=== PATIENT | female | born 1960 | race African-American/Black ===

== ENCOUNTER 2017-02-27 15:05 | Emergency (ER) | payer OTHER ==
[~2017-02-27] VITALS: Ht 160 cm; Wt 92.7 kg
[2017-02-27 15:17] LABS: GLUCOSE,POINT OF CARE 171 MG/DL (70-110)
[2017-02-27] MEDS ORDERED: ASPI81 PO (15:25)
[2017-02-27] MEDS ORDERED: METF500T4 PO (15:25)
[2017-02-27] MEDS ORDERED: GLIP5 PO (15:25)
[2017-02-27] MEDS ORDERED: ATOR20TA86 PO (15:25)
[2017-02-27 17:50] VITALS: BP 129/73
== END 2017-02-27 18:27 | disposition home or self-care (01) ==
LOC: EMS 15:06
DX: L02.811 Cutaneous abscess of head [any part, except face] (principal); L02.01 Cutaneous abscess of face; L30.8 Other specified dermatitis; E11.9 Type 2 diabetes mellitus without complications; E78.00 Pure hypercholesterolemia, unspecified; Z79.82 Long term (current) use of aspirin
CPT/HCPCS: 82962; 99283

== ENCOUNTER 2018-04-22 23:26 | Emergency (ER) | payer OTHER ==
[~2018-04-22] VITALS: Ht 160 cm; Wt 97.7 kg
[~2018-04-22 23:26] MED LIST: ASPI81 PO; ATOR20TA86 PO; GLIP5 PO; METF500T6 PO
[2018-04-22 23:38] LABS: GLUCOSE,POINT OF CARE 204 MG/DL (70-110)
[2018-04-23] MEDS ORDERED: LIDOCAINE HCL/PF 1% 5 ML VIAL INJ ONE (01:00)
[2018-04-23] MEDS ORDERED: BACITRACIN 0.9 GM PACKET OINTMENT TP ONE (02:15)
[2018-04-23 02:26] VITALS: BP 119/84
[2018-04-23] MEDS ORDERED: PERTUSS(ACELL),DIPH,TET VAC/PF 0.5 ML VIAL IM ONE (02:30)
== END 2018-04-23 02:35 | disposition home or self-care (01) ==
LOC: EMS 23:27
DX: S01.81XA Laceration without foreign body of other part of head, initial encounter (principal); E11.9 Type 2 diabetes mellitus without complications; E78.00 Pure hypercholesterolemia, unspecified; Z79.82 Long term (current) use of aspirin; Z79.899 Other long term (current) drug therapy; W22.8XXA Striking against or struck by other objects, initial encounter; Y93.89 Activity, other specified; Y92.89 Other specified places as the place of occurrence of the external cause; Y99.8 Other external cause status
CPT/HCPCS: 12013; 82962; 90471; 90715; 99283; J3490

== ENCOUNTER 2018-04-30 12:25 | Emergency (ER) | payer OTHER ==
[~2018-04-30] VITALS: Ht 162.6 cm; Wt 90.9 kg
[2018-04-30 12:58] LABS: GLUCOSE,POINT OF CARE 176 MG/DL (70-110)
[2018-04-30 13:47] VITALS: BP 131/84
== END 2018-04-30 14:00 | disposition home or self-care (01) ==
LOC: EMS 12:27
DX: Z48.02 Encounter for removal of sutures (principal); E11.9 Type 2 diabetes mellitus without complications; E78.00 Pure hypercholesterolemia, unspecified
CPT/HCPCS: 99281; 99282

== ENCOUNTER 2021-08-26 14:32 | Inpatient (IN) | payer OTHER ==
[~2021-08-26] VITALS: Ht 172.7 cm; Wt 88.0 kg
[~2021-08-26 14:32] MED LIST changes: +ASPI-1450 PO; -ASPI81 PO; +METF-1211 PO; -METF500T6 PO
[2021-08-26] MEDS ORDERED: ACETAMINOPHEN 325 MG TABLET PO ONE (15:30)
[2021-08-26] MEDS ORDERED: SODIUM CHLORIDE 0.9% 1,000 ML IV ONE (15:30)
[2021-08-26] MEDS ORDERED: ONDANSETRON HCL 4 MG/2 ML VIAL IVP ONE (15:30)
[2021-08-26 15:41] LABS: BASOPHILS % (AUTO) 0.3 % (0.0-2.0); EOSINOPHILS % (AUTO) 0.1 % (1.0-6.0); HEMATOCRIT 43.6 % (36-46); LYMPHOCYTES # (AUTO) 0.9 K/uL (1.0-4.8); LYMPHOCYTES % (AUTO) 6.7 % (22.0-44.0); MEAN CORPUSCULAR HEMOGLOBIN 27.5 pg (26.0-34.0); MEAN CORPUSCULAR VOLUME 86 fL (80-100); MONOCYTES # (AUTO) 0.4 K/uL (0.1-1.0); MONOCYTES % (AUTO) 2.9 % (2.0-9.0); NEUTROPHILS # (AUTO) 12.2 K/uL (1.8-7.7); PLATELET COUNT (AUTO) 299 K/uL (150-450); RED BLOOD CELL COUNT(AUTO) 5.07 MIL/uL (4.00-5.20); RED CELL DISTRIBUTION WIDTH 14.5 % (11.5-14.5)
[2021-08-26 16:28] LABS: COVID AG,FIA SOURCE NASOPHARYNGEAL
[2021-08-26 16:31] LABS: ALANINE AMINOTRANSFERASE 28 U/L (12-78); ALBUMIN 2.3 g/dL (3.4-5.0); ALKALINE PHOSPHATASE 116 U/L (46-116); ANION GAP 12 mmol/L (8-16); ASPARTATE AMINOTRANSFERASE 34 U/L (15-37); BILIRUBIN,TOTAL 0.6 mg/dL (0.1-1.0); C-REACTIVE PROTEIN QUANT 24.22 mg/dL (0.00-0.30); CALCIUM, TOTAL 9.1 mg/dL (8.8-10.5); CARBON DIOXIDE 25 mmol/L (22-29); CHLORIDE 94 mmol/L (98-107); CREATININE 1.71 mg/dL (0.60-1.30); FERRITIN 1677 ng/mL (8-252); GLOMERULAR FILTR. RATE CALC 37 mL/min (>60); LACTATE DEHYDROGENASE 388 U/L (81-234); LIPASE 214 U/L (73-393); POTASSIUM 4.3 mmol/L (3.5-5.1); SODIUM SERUM 131 mmol/L (136-145); THYROID STIMULATING HORMONE 0.68 uIU/mL (0.36-3.74); TOTAL PROTEIN, SERUM 8.3 g/dL (6.4-8.2); UREA NITROGEN, BLOOD 51 mg/dL (7-18)
[2021-08-26 16:34] LABS: GLUCOSE,RANDOM 424 mg/dL (70-110)
[2021-08-26] MEDS ORDERED: ALBUTEROL SULFATE HFA 90 MCG/PUFF 8 GM INHALER IH PRN (16:45)
[2021-08-26] MEDS ORDERED: REMDESIVIR 200 MG in SODIUM CHLORIDE 0.9% 250 ML IV ONE (16:45)
[2021-08-26] MEDS ORDERED: BENZONATATE 100 MG CAPSULE PO PRN (16:45)
[2021-08-26] MEDS ORDERED: DEXAMETHASONE SOD PHOS 4 MG/ML VIAL IVP ONE (16:45)
[2021-08-26 16:55] LABS: LACTIC ACID 2.2 mmol/L (0.4-2.0)
[2021-08-26] MEDS ORDERED: ACETAMINOPHEN 325 MG TABLET PO PRN ×2 (17:00)
[2021-08-26] MEDS ORDERED: OxyCODONE HCL/ACETAMINOPHEN 5-325 MG TABLET PO PRN (17:00)
[2021-08-26] MEDS ORDERED: DEXTROSE 50%-WATER 25 GM/50 ML SYRINGE IVP PRN (17:00)
[2021-08-26] MEDS ORDERED: 0.9% SODIUM CHLORIDE 10 ML SYRINGE IVP PRN (17:00)
[2021-08-26] MEDS ORDERED: ONDANSETRON HCL 4 MG/2 ML VIAL IVP PRN ×2 (17:00)
[2021-08-26 17:15] LABS: INFLUENZA TYPE A NEGATIVE FOR TYPE A (NEGATIVE); INFLUENZA TYPE B NEGATIVE FOR TYPE B (NEGATIVE)
[2021-08-26] MEDS: SODIUM CHLORIDE 0.9% 1,000 ML IV SCH (17:37)
[2021-08-26] MEDS: INSULIN LISPRO 100 UNITS/ML SQ PRN ×2 (18:17→22:04)
[2021-08-26 18:26] LABS: GLUCOMETER DEV NAME(LOC) ERT.5; GLUCOSE,POINT OF CARE 421 MG/DL (70-110)
[2021-08-26] MEDS: DOCUSATE SODIUM 100 MG CAPSULE PO SCH (21:00)
[2021-08-26] MEDS: INSULIN GLARGINE,HUM.REC.ANLOG 100 UNITS/ML SQ SCH (22:03)
[2021-08-26 23:52] VITALS: BP 104/66
[2021-08-27] MEDS: HEPARIN SODIUM,PORCINE 5,000 UNITS/ML VIAL SQ SCH ×4 (00:14→22:54)
[2021-08-27] MEDS: SODIUM CHLORIDE 0.9% 1,000 ML IV SCH ×3 (00:14→21:07)
[2021-08-27] MEDS ORDERED: INFLUENZA VIRUS VACCINE QVS 2021-22 (6MO+)/PF 60 MCG/0.5 ML SYRINGE IM. ONE (01:45)
[2021-08-27 02:44] VITALS: BP 126/64
[2021-08-27 03:01] LABS: GLUCOMETER DEV NAME(LOC) 5S.2B; GLUCOSE,POINT OF CARE 305 MG/DL (70-110)
[2021-08-27 05:24] VITALS: BP 102/57
[2021-08-27] MEDS: DEXAMETHASONE SOD PHOS 4 MG/ML VIAL IVP SCH (08:04)
[2021-08-27] MEDS: FAMOTIDINE 20 MG TABLET PO SCH (08:04)
[2021-08-27] MEDS: DOCUSATE SODIUM 100 MG CAPSULE PO SCH ×2 (08:04→21:00)
[2021-08-27 08:05] VITALS: BP 103/56
[2021-08-27] MEDS: INSULIN GLARGINE,HUM.REC.ANLOG 100 UNITS/ML SQ SCH ×2 (08:09→21:06)
[2021-08-27] MEDS: INSULIN LISPRO 100 UNITS/ML SQ PRN ×3 (11:11→21:07)
[2021-08-27 11:16] LABS: BASOPHILS % (AUTO) 0.1 % (0.0-2.0); EOSINOPHILS % (AUTO) 0.2 % (1.0-6.0); HEMATOCRIT 38.7 % (36-46); HEMOGLOBIN 12.5 g/dL (12.0-16.0); LYMPHOCYTES # (AUTO) 0.6 K/uL (1.0-4.8); MEAN CORPUSCULAR HEMOGLOBIN 27.7 pg (26.0-34.0); MEAN CORPUSCULAR HGB CONC 32.5 G/dL (31.0-37.0); MEAN CORPUSCULAR VOLUME 85 fL (80-100); MONOCYTES # (AUTO) 0.3 K/uL (0.1-1.0); NEUTROPHILS # (AUTO) 10.5 K/uL (1.8-7.7); PLATELET COUNT (AUTO) 296 K/uL (150-450); RED BLOOD CELL COUNT(AUTO) 4.53 MIL/uL (4.00-5.20); RED CELL DISTRIBUTION WIDTH 14.3 % (11.5-14.5)
[2021-08-27 11:21] LABS: NEUTROPHILS % (AUTO) 91.7 % (40.0-70.0)
[2021-08-27 11:23] LABS: GLUCOMETER DEV NAME(LOC) 5S.1; GLUCOSE,POINT OF CARE 209 MG/DL (70-110)
[2021-08-27 11:23] LABS: GLUCOMETER DEV NAME(LOC) 5S.1; GLUCOSE,POINT OF CARE 236 MG/DL (70-110)
[2021-08-27 11:45] VITALS: BP 100/56
[2021-08-27 11:48] LABS: ANION GAP 10 mmol/L (8-16); CALCIUM, TOTAL 8.3 mg/dL (8.8-10.5); CARBON DIOXIDE 24 mmol/L (22-29); CHLORIDE 102 mmol/L (98-107); CREATININE 1.09 mg/dL (0.60-1.30); GLOMERULAR FILTR. RATE CALC > 60 mL/min (>60); GLUCOSE,RANDOM 223 mg/dL (70-110); POTASSIUM 4.3 mmol/L (3.5-5.1); SODIUM SERUM 136 mmol/L (136-145); UREA NITROGEN, BLOOD 40 mg/dL (7-18)
[2021-08-27 15:56] VITALS: BP 121/67
[2021-08-27] MEDS: REMDESIVIR 100 MG in SODIUM CHLORIDE 0.9% 250 ML IV SCH (17:27)
[2021-08-27 20:29] VITALS: BP_SYST 119; BP_SYST 122; BP_DIAS 60; BP_DIAS 72
[2021-08-27 23:19] LABS: GLUCOMETER DEV NAME(LOC) 5N.1C; GLUCOSE,POINT OF CARE 341 MG/DL (70-110)
[2021-08-27 23:19] LABS: GLUCOMETER DEV NAME(LOC) 5N.1C; GLUCOSE,POINT OF CARE 302 MG/DL (70-110)
[2021-08-28] VITALS (7 sets, daily range): BP systolic 110–140; BP diastolic 64–84
[2021-08-28] MEDS: SODIUM CHLORIDE 0.9% 1,000 ML IV SCH ×3 (05:08→20:07)
[2021-08-28] MEDS: INSULIN LISPRO 100 UNITS/ML SQ PRN ×4 (06:05→21:24)
[2021-08-28 06:36] LABS: GLUCOMETER DEV NAME(LOC) 5S.2B; GLUCOSE,POINT OF CARE 269 MG/DL (70-110)
[2021-08-28] MEDS: DEXAMETHASONE SOD PHOS 4 MG/ML VIAL IVP SCH (07:20)
[2021-08-28] MEDS: HEPARIN SODIUM,PORCINE 5,000 UNITS/ML VIAL SQ SCH ×3 (07:21→23:51)
[2021-08-28] MEDS: DOCUSATE SODIUM 100 MG CAPSULE PO SCH ×2 (07:21→20:07)
[2021-08-28] MEDS: FAMOTIDINE 20 MG TABLET PO SCH (07:21)
[2021-08-28] MEDS: INSULIN GLARGINE,HUM.REC.ANLOG 100 UNITS/ML SQ SCH ×2 (07:27→21:24)
[2021-08-28 07:37] LABS: CARBON DIOXIDE 24 mmol/L (22-29); CHLORIDE 106 mmol/L (98-107); POTASSIUM 4.3 mmol/L (3.5-5.1); SODIUM SERUM 137 mmol/L (136-145)
[2021-08-28 07:38] LABS: ALANINE AMINOTRANSFERASE 23 U/L (12-78); ALBUMIN 1.7 g/dL (3.4-5.0); ALKALINE PHOSPHATASE 98 U/L (46-116); ANION GAP 7 mmol/L (8-16); ASPARTATE AMINOTRANSFERASE 24 U/L (15-37); BILIRUBIN,TOTAL 0.3 mg/dL (0.1-1.0); C-REACTIVE PROTEIN QUANT 14.86 mg/dL (0.00-0.30); CALCIUM, TOTAL 8.6 mg/dL (8.8-10.5); CREATININE 0.99 mg/dL (0.60-1.30); FERRITIN 1462 ng/mL (8-252); GLOMERULAR FILTR. RATE CALC > 60 mL/min (>60); GLUCOSE,RANDOM 256 mg/dL (70-110); TOTAL PROTEIN, SERUM 6.6 g/dL (6.4-8.2); UREA NITROGEN, BLOOD 34 mg/dL (7-18)
[2021-08-28] MEDS ORDERED: HYDROCORTISONE 0.5% 30 GM CREAM TP PRN (13:30)
[2021-08-28] MEDS: REMDESIVIR 100 MG in SODIUM CHLORIDE 0.9% 250 ML IV SCH (17:22)
[2021-08-28 20:15] LABS: GLUCOMETER DEV NAME(LOC) 5S.2B; GLUCOSE,POINT OF CARE 333 MG/DL (70-110)
[2021-08-28 20:16] LABS: GLUCOMETER DEV NAME(LOC) 5N.1C; GLUCOSE,POINT OF CARE 378 MG/DL (70-110)
[2021-08-29] MEDS: SODIUM CHLORIDE 0.9% 1,000 ML IV SCH ×3 (02:13→20:24)
[2021-08-29 03:38] VITALS: BP 130/77
[2021-08-29 05:45] LABS: GLUCOMETER DEV NAME(LOC) 5S.2B; GLUCOSE,POINT OF CARE 314 MG/DL (70-110)
[2021-08-29 07:01] LABS: ALANINE AMINOTRANSFERASE 20 U/L (12-78); ALBUMIN 1.8 g/dL (3.4-5.0); ALKALINE PHOSPHATASE 102 U/L (46-116); ANION GAP 9 mmol/L (8-16); ASPARTATE AMINOTRANSFERASE 20 U/L (15-37); BILIRUBIN,TOTAL 0.3 mg/dL (0.1-1.0); C-REACTIVE PROTEIN QUANT 8.87 mg/dL (0.00-0.30); CALCIUM, TOTAL 8.6 mg/dL (8.8-10.5); CARBON DIOXIDE 27 mmol/L (22-29); CHLORIDE 107 mmol/L (98-107); CREATININE 0.83 mg/dL (0.60-1.30); FERRITIN 749 ng/mL (8-252); GLOMERULAR FILTR. RATE CALC > 60 mL/min (>60); GLUCOSE,RANDOM 90 mg/dL (70-110); SODIUM SERUM 143 mmol/L (136-145); TOTAL PROTEIN, SERUM 6.8 g/dL (6.4-8.2); UREA NITROGEN, BLOOD 22 mg/dL (7-18)
[2021-08-29] MEDS: HEPARIN SODIUM,PORCINE 5,000 UNITS/ML VIAL SQ SCH ×3 (08:07→23:45)
[2021-08-29] MEDS: FAMOTIDINE 20 MG TABLET PO SCH (08:07)
[2021-08-29] MEDS: DOCUSATE SODIUM 100 MG CAPSULE PO SCH ×2 (08:07→20:24)
[2021-08-29] MEDS: INSULIN GLARGINE,HUM.REC.ANLOG 100 UNITS/ML SQ SCH ×2 (08:08→20:39)
[2021-08-29 08:13] VITALS: BP 118/67
[2021-08-29] MEDS: DEXAMETHASONE SOD PHOS 4 MG/ML VIAL IVP SCH (09:01)
[2021-08-29 11:35] VITALS: BP 139/81
[2021-08-29 11:35] LABS: GLUCOMETER DEV NAME(LOC) 5N.1C; GLUCOSE,POINT OF CARE 92 MG/DL (70-110)
[2021-08-29 11:35] LABS: GLUCOMETER DEV NAME(LOC) 5N.1C; GLUCOSE,POINT OF CARE 124 MG/DL (70-110)
[2021-08-29] MEDS: INSULIN LISPRO 100 UNITS/ML SQ PRN ×2 (17:42→20:38)
[2021-08-29] MEDS: REMDESIVIR 100 MG in SODIUM CHLORIDE 0.9% 250 ML IV SCH (17:46)
[2021-08-29 20:23] VITALS: BP 123/67
[2021-08-29 21:23] LABS: GLUCOMETER DEV NAME(LOC) 5N.1C; GLUCOSE,POINT OF CARE 237 MG/DL (70-110)
[2021-08-29 21:23] LABS: GLUCOMETER DEV NAME(LOC) 5N.1C; GLUCOSE,POINT OF CARE 242 MG/DL (70-110)
[2021-08-29 23:28] VITALS: BP 132/70
[2021-08-30] MEDS: SODIUM CHLORIDE 0.9% 1,000 ML IV SCH (04:31)
[2021-08-30 06:10] LABS: GLUCOMETER DEV NAME(LOC) 5S.2B; GLUCOSE,POINT OF CARE 87 MG/DL (70-110)
[2021-08-30 06:21] VITALS: BP 133/70
[2021-08-30 06:57] LABS: ALANINE AMINOTRANSFERASE 19 U/L (12-78); ALBUMIN 1.7 g/dL (3.4-5.0); ALKALINE PHOSPHATASE 107 U/L (46-116); ANION GAP 10 mmol/L (8-16); ASPARTATE AMINOTRANSFERASE 21 U/L (15-37); BILIRUBIN,TOTAL 0.4 mg/dL (0.1-1.0); C-REACTIVE PROTEIN QUANT 12.71 mg/dL (0.00-0.30); CALCIUM, TOTAL 8.1 mg/dL (8.8-10.5); CARBON DIOXIDE 27 mmol/L (22-29); CHLORIDE 103 mmol/L (98-107); CREATININE 0.72 mg/dL (0.60-1.30); FERRITIN 566 ng/mL (8-252); GLOMERULAR FILTR. RATE CALC > 60 mL/min (>60); GLUCOSE,RANDOM 96 mg/dL (70-110); POTASSIUM 3.8 mmol/L (3.5-5.1); SODIUM SERUM 140 mmol/L (136-145); TOTAL PROTEIN, SERUM 6.8 g/dL (6.4-8.2); UREA NITROGEN, BLOOD 12 mg/dL (7-18)
[2021-08-30 07:45] VITALS: BP 124/76
[2021-08-30] MEDS: FAMOTIDINE 20 MG TABLET PO SCH (08:22)
[2021-08-30] MEDS: DOCUSATE SODIUM 100 MG CAPSULE PO SCH ×2 (08:22→21:32)
[2021-08-30] MEDS: HEPARIN SODIUM,PORCINE 5,000 UNITS/ML VIAL SQ SCH (08:23)
[2021-08-30] MEDS: DEXAMETHASONE SOD PHOS 4 MG/ML VIAL IVP SCH (08:23)
[2021-08-30] MEDS: INSULIN GLARGINE,HUM.REC.ANLOG 100 UNITS/ML SQ SCH ×2 (08:34→21:33)
[2021-08-30 10:46] VITALS: BP 125/68
[2021-08-30] MEDS: INSULIN LISPRO 100 UNITS/ML SQ PRN ×2 (11:56→19:10)
[2021-08-30] MEDS ORDERED: ENOXAPARIN SODIUM 80 MG/0.8 ML PF SYRINGE SQ SCH (12:45)
[2021-08-30 15:36] VITALS: BP 154/76
[2021-08-30 17:56] LABS: GLUCOMETER DEV NAME(LOC) 5S.2B; GLUCOSE,POINT OF CARE 82 MG/DL (70-110)
[2021-08-30 17:56] LABS: GLUCOMETER DEV NAME(LOC) 5S.2B; GLUCOSE,POINT OF CARE 209 MG/DL (70-110)
[2021-08-30] MEDS: REMDESIVIR 100 MG in SODIUM CHLORIDE 0.9% 250 ML IV SCH ×2 (18:00→18:15)
[2021-08-30] MEDS ORDERED: SODIUM CHLORIDE 0.9% 100 ML ONE (18:17)
[2021-08-30] MEDS ORDERED: IOHEXOL 350 MG/ML 100 ML VIAL ONE (18:17)
[2021-08-30 20:35] VITALS: BP 127/80
[2021-08-30] MEDS: ENOXAPARIN SODIUM 100 MG/ML PF SYRINGE SQ SCH (21:34)
[2021-08-30 21:38] LABS: GLUCOMETER DEV NAME(LOC) 5N.1C; GLUCOSE,POINT OF CARE 214 MG/DL (70-110)
[2021-08-30 21:38] LABS: GLUCOMETER DEV NAME(LOC) 5N.1C; GLUCOSE,POINT OF CARE 237 MG/DL (70-110)
[2021-08-31] VITALS: BP 109/74
[2021-08-31 05:31] VITALS: BP 104/59
[2021-08-31 07:35] LABS: GLUCOMETER DEV NAME(LOC) 5N.1C; GLUCOSE,POINT OF CARE 122 MG/DL (70-110)
[2021-08-31] MEDS: ENOXAPARIN SODIUM 100 MG/ML PF SYRINGE SQ SCH ×2 (08:28→20:52)
[2021-08-31] MEDS: DEXAMETHASONE SOD PHOS 4 MG/ML VIAL IVP SCH (08:28)
[2021-08-31] MEDS: FAMOTIDINE 20 MG TABLET PO SCH (08:28)
[2021-08-31] MEDS: DOCUSATE SODIUM 100 MG CAPSULE PO SCH ×2 (08:28→20:52)
[2021-08-31 08:42] VITALS: BP 97/59
[2021-08-31] MEDS: INSULIN GLARGINE,HUM.REC.ANLOG 100 UNITS/ML SQ SCH ×2 (09:00→21:04)
[2021-08-31 11:09] VITALS: BP 105/65
[2021-08-31] MEDS: INSULIN LISPRO 100 UNITS/ML SQ PRN ×3 (12:07→21:05)
[2021-08-31 15:22] VITALS: BP 100/69
[2021-08-31] MEDS ORDERED: DEXAMETHASONE SOD PHOS 4 MG/ML VIAL IM ONE (16:00)
[2021-08-31 20:16] LABS: GLUCOMETER DEV NAME(LOC) 5N.3; GLUCOSE,POINT OF CARE 163 MG/DL (70-110)
[2021-08-31 20:48] VITALS: BP 126/76
[2021-09-01] VITALS (7 sets, daily range): BP systolic 110–133; BP diastolic 65–82
[2021-09-01] MEDS: INSULIN LISPRO 100 UNITS/ML SQ PRN ×4 (06:07→22:19)
[2021-09-01 07:02] LABS: BASOPHILS % (AUTO) 0.2 % (0.0-2.0); EOSINOPHILS % (AUTO) 0.2 % (1.0-6.0); HEMATOCRIT 37.8 % (36-46); HEMOGLOBIN 12.5 g/dL (12.0-16.0); LYMPHOCYTES # (AUTO) 0.9 K/uL (1.0-4.8); LYMPHOCYTES % (AUTO) 11.5 % (22.0-44.0); MEAN CORPUSCULAR HGB CONC 33.1 G/dL (31.0-37.0); MEAN CORPUSCULAR VOLUME 85 fL (80-100); MONOCYTES # (AUTO) 0.4 K/uL (0.1-1.0); MONOCYTES % (AUTO) 4.4 % (2.0-9.0); NEUTROPHILS # (AUTO) 6.8 K/uL (1.8-7.7); NEUTROPHILS % (AUTO) 83.7 % (40.0-70.0); PLATELET COUNT (AUTO) 336 K/uL (150-450); RED BLOOD CELL COUNT(AUTO) 4.47 MIL/uL (4.00-5.20); RED CELL DISTRIBUTION WIDTH 14.5 % (11.5-14.5)
[2021-09-01 07:30] LABS: ALANINE AMINOTRANSFERASE 20 U/L (12-78); ALBUMIN 1.5 g/dL (3.4-5.0); ALKALINE PHOSPHATASE 111 U/L (46-116); ANION GAP 6 mmol/L (8-16); ASPARTATE AMINOTRANSFERASE 24 U/L (15-37); BILIRUBIN,TOTAL 0.3 mg/dL (0.1-1.0); C-REACTIVE PROTEIN QUANT 12.02 mg/dL (0.00-0.30); CALCIUM, TOTAL 8.5 mg/dL (8.8-10.5); CARBON DIOXIDE 27 mmol/L (22-29); CHLORIDE 103 mmol/L (98-107); FERRITIN 525 ng/mL (8-252); GLOMERULAR FILTR. RATE CALC > 60 mL/min (>60); GLUCOSE,RANDOM 254 mg/dL (70-110); POTASSIUM 3.9 mmol/L (3.5-5.1); SODIUM SERUM 136 mmol/L (136-145); TOTAL PROTEIN, SERUM 6.3 g/dL (6.4-8.2); UREA NITROGEN, BLOOD 20 mg/dL (7-18)
[2021-09-01] MEDS: DEXAMETHASONE SOD PHOS 4 MG/ML VIAL IVP SCH (10:09)
[2021-09-01] MEDS: ENOXAPARIN SODIUM 100 MG/ML PF SYRINGE SQ SCH ×2 (10:10→22:01)
[2021-09-01] MEDS: DOCUSATE SODIUM 100 MG CAPSULE PO SCH ×2 (10:10→22:01)
[2021-09-01] MEDS: FAMOTIDINE 20 MG TABLET PO SCH (10:10)
[2021-09-01] MEDS: INSULIN GLARGINE,HUM.REC.ANLOG 100 UNITS/ML SQ SCH ×2 (10:14→22:18)
[2021-09-01 13:59] LABS: GLUCOMETER DEV NAME(LOC) 5N.1C; GLUCOSE,POINT OF CARE 235 MG/DL (70-110)
[2021-09-01 13:59] LABS: GLUCOMETER DEV NAME(LOC) 5N.1C; GLUCOSE,POINT OF CARE 248 MG/DL (70-110)
[2021-09-01 13:59] LABS: GLUCOMETER DEV NAME(LOC) 5N.1C; GLUCOSE,POINT OF CARE 331 MG/DL (70-110)
[2021-09-01] MEDS ORDERED: TOCILIZUMAB 700 MG in SODIUM CHLORIDE 0.9% 65 ML IV ONE (15:00)
[2021-09-01 23:27] LABS: GLUCOMETER DEV NAME(LOC) 5S.2B; GLUCOSE,POINT OF CARE 290 MG/DL (70-110)
[2021-09-01 23:27] LABS: GLUCOMETER DEV NAME(LOC) 5S.2B; GLUCOSE,POINT OF CARE 396 MG/DL (70-110)
[2021-09-01 23:27] LABS: GLUCOMETER DEV NAME(LOC) 5S.2B; GLUCOSE,POINT OF CARE 259 MG/DL (70-110)
[2021-09-02 03:55] VITALS: BP 136/76
[2021-09-02] MEDS: INSULIN LISPRO 100 UNITS/ML SQ PRN ×4 (05:42→20:13)
[2021-09-02 07:33] LABS: GLUCOMETER DEV NAME(LOC) 5S.2B; GLUCOSE,POINT OF CARE 185 MG/DL (70-110)
[2021-09-02 07:40] VITALS: BP 98/63
[2021-09-02] MEDS: DOCUSATE SODIUM 100 MG CAPSULE PO SCH ×2 (08:08→20:14)
[2021-09-02] MEDS: FAMOTIDINE 20 MG TABLET PO SCH (08:08)
[2021-09-02] MEDS: ENOXAPARIN SODIUM 100 MG/ML PF SYRINGE SQ SCH ×2 (08:08→20:09)
[2021-09-02] MEDS: INSULIN GLARGINE,HUM.REC.ANLOG 100 UNITS/ML SQ SCH ×2 (08:09→20:13)
[2021-09-02] MEDS: DEXAMETHASONE SOD PHOS 4 MG/ML VIAL IVP SCH (08:09)
[2021-09-02 09:00] LABS: ANION GAP 1 mmol/L (8-16); C-REACTIVE PROTEIN QUANT 5.97 mg/dL (0.00-0.30); CALCIUM, TOTAL 9.5 mg/dL (8.8-10.5); CARBON DIOXIDE 32 mmol/L (22-29); CHLORIDE 106 mmol/L (98-107); CREATININE 0.79 mg/dL (0.60-1.30); GLOMERULAR FILTR. RATE CALC > 60 mL/min (>60); GLUCOSE,RANDOM 145 mg/dL (70-110); POTASSIUM 5.4 mmol/L (3.5-5.1); SODIUM SERUM 139 mmol/L (136-145); UREA NITROGEN, BLOOD 21 mg/dL (7-18)
[2021-09-02 09:41] LABS: FERRITIN 533 ng/mL (8-252)
[2021-09-02 11:59] VITALS: BP 115/72
[2021-09-02] MEDS ORDERED: SODIUM POLYSTYRENE SULFONATE 15 GM/60 ML SUSPENSION BOTTLE PO ONE (14:45)
[2021-09-02 15:18] VITALS: BP 126/90
[2021-09-02 18:12] LABS: GLUCOMETER DEV NAME(LOC) 5S.2B; GLUCOSE,POINT OF CARE 360 MG/DL (70-110)
[2021-09-02 18:12] LABS: GLUCOMETER DEV NAME(LOC) 5S.2B; GLUCOSE,POINT OF CARE 270 MG/DL (70-110)
[2021-09-02 19:41] VITALS: BP 123/65
[2021-09-03 00:44] VITALS: BP 101/63
[2021-09-03 01:34] LABS: GLUCOMETER DEV NAME(LOC) 5S.2B; GLUCOSE,POINT OF CARE 331 MG/DL (70-110)
[2021-09-03 03:52] VITALS: BP 110/61
[2021-09-03 06:22] LABS: GLUCOMETER DEV NAME(LOC) 5S.2B; GLUCOSE,POINT OF CARE 125 MG/DL (70-110)
[2021-09-03 06:22] LABS: GLUCOMETER DEV NAME(LOC) 5S.2B; GLUCOSE,POINT OF CARE 99 MG/DL (70-110)
[2021-09-03 06:22] LABS: BASOPHILS % (AUTO) 0.3 % (0.0-2.0); EOSINOPHILS % (AUTO) 0.9 % (1.0-6.0); HEMATOCRIT 37.3 % (36-46); HEMOGLOBIN 12.5 g/dL (12.0-16.0); LYMPHOCYTES # (AUTO) 1.7 K/uL (1.0-4.8); LYMPHOCYTES % (AUTO) 27.7 % (22.0-44.0); MEAN CORPUSCULAR HEMOGLOBIN 28.2 pg (26.0-34.0); MEAN CORPUSCULAR HGB CONC 33.4 G/dL (31.0-37.0); MEAN CORPUSCULAR VOLUME 85 fL (80-100); MONOCYTES # (AUTO) 0.4 K/uL (0.1-1.0); MONOCYTES % (AUTO) 5.8 % (2.0-9.0); NEUTROPHILS # (AUTO) 4.1 K/uL (1.8-7.7); NEUTROPHILS % (AUTO) 65.3 % (40.0-70.0); PLATELET COUNT (AUTO) 338 K/uL (150-450); RED BLOOD CELL COUNT(AUTO) 4.42 MIL/uL (4.00-5.20); RED CELL DISTRIBUTION WIDTH 14.5 % (11.5-14.5)
[2021-09-03 06:56] LABS: ANION GAP 7 mmol/L (8-16); CARBON DIOXIDE 29 mmol/L (22-29); CHLORIDE 100 mmol/L (98-107); CREATININE 0.68 mg/dL (0.60-1.30); GLOMERULAR FILTR. RATE CALC > 60 mL/min (>60); GLUCOSE,RANDOM 113 mg/dL (70-110); POTASSIUM 3.8 mmol/L (3.5-5.1); SODIUM SERUM 136 mmol/L (136-145); UREA NITROGEN, BLOOD 18 mg/dL (7-18)
[2021-09-03] MEDS: FAMOTIDINE 20 MG TABLET PO SCH (08:14)
[2021-09-03] MEDS: DOCUSATE SODIUM 100 MG CAPSULE PO SCH ×2 (08:14→20:33)
[2021-09-03] MEDS: DEXAMETHASONE SOD PHOS 4 MG/ML VIAL IVP SCH (08:15)
[2021-09-03 08:16] VITALS: BP 122/69
[2021-09-03] MEDS: ENOXAPARIN SODIUM 100 MG/ML PF SYRINGE SQ SCH ×2 (08:16→20:33)
[2021-09-03] MEDS: INSULIN GLARGINE,HUM.REC.ANLOG 100 UNITS/ML SQ SCH ×2 (08:32→20:35)
[2021-09-03 11:43] VITALS: BP 125/80
[2021-09-03] MEDS: INSULIN LISPRO 100 UNITS/ML SQ PRN ×3 (11:44→20:35)
[2021-09-03 11:50] LABS: GLUCOMETER DEV NAME(LOC) 5S.2B; GLUCOSE,POINT OF CARE 200 MG/DL (70-110)
[2021-09-03 16:06] VITALS: BP 100/64
[2021-09-03 17:41] LABS: GLUCOMETER DEV NAME(LOC) 5S.2B; GLUCOSE,POINT OF CARE 293 MG/DL (70-110)
[2021-09-03 20:28] VITALS: BP 122/78
[2021-09-04] VITALS (7 sets, daily range): BP systolic 94–119; BP diastolic 56–73
[2021-09-04 00:23] LABS: GLUCOMETER DEV NAME(LOC) 5S.2B; GLUCOSE,POINT OF CARE 230 MG/DL (70-110)
[2021-09-04 07:14] LABS: BASOPHILS % (AUTO) 0.4 % (0.0-2.0); HEMATOCRIT 43.4 % (36-46); HEMOGLOBIN 14.1 g/dL (12.0-16.0); LYMPHOCYTES # (AUTO) 2.3 K/uL (1.0-4.8); LYMPHOCYTES % (AUTO) 36.4 % (22.0-44.0); MEAN CORPUSCULAR HEMOGLOBIN 27.8 pg (26.0-34.0); MEAN CORPUSCULAR HGB CONC 32.5 G/dL (31.0-37.0); MEAN CORPUSCULAR VOLUME 86 fL (80-100); MONOCYTES # (AUTO) 0.4 K/uL (0.1-1.0); MONOCYTES % (AUTO) 5.9 % (2.0-9.0); NEUTROPHILS # (AUTO) 3.5 K/uL (1.8-7.7); NEUTROPHILS % (AUTO) 56.3 % (40.0-70.0); PLATELET COUNT (AUTO) 308 K/uL (150-450); RED BLOOD CELL COUNT(AUTO) 5.07 MIL/uL (4.00-5.20); RED CELL DISTRIBUTION WIDTH 14.5 % (11.5-14.5)
[2021-09-04 07:29] LABS: ANION GAP 4 mmol/L (8-16); CALCIUM, TOTAL 9.4 mg/dL (8.8-10.5); CARBON DIOXIDE 31 mmol/L (22-29); CHLORIDE 105 mmol/L (98-107); CREATININE 0.66 mg/dL (0.60-1.30); GLOMERULAR FILTR. RATE CALC > 60 mL/min (>60); GLUCOSE,RANDOM 143 mg/dL (70-110); POTASSIUM 4.4 mmol/L (3.5-5.1); SODIUM SERUM 140 mmol/L (136-145); UREA NITROGEN, BLOOD 19 mg/dL (7-18)
[2021-09-04] MEDS: ENOXAPARIN SODIUM 100 MG/ML PF SYRINGE SQ SCH ×2 (07:57→20:14)
[2021-09-04] MEDS: DOCUSATE SODIUM 100 MG CAPSULE PO SCH ×2 (07:57→20:14)
[2021-09-04] MEDS: DEXAMETHASONE SOD PHOS 4 MG/ML VIAL IVP SCH (07:57)
[2021-09-04] MEDS: FAMOTIDINE 20 MG TABLET PO SCH (07:57)
[2021-09-04] MEDS: INSULIN GLARGINE,HUM.REC.ANLOG 100 UNITS/ML SQ SCH ×2 (08:01→20:17)
[2021-09-04] MEDS: INSULIN LISPRO 100 UNITS/ML SQ PRN ×3 (11:38→20:17)
[2021-09-04 12:02] LABS: C-REACTIVE PROTEIN QUANT 2.09 mg/dL (0.00-0.30)
[2021-09-04 13:14] LABS: GLUCOMETER DEV NAME(LOC) 5N.3; GLUCOSE,POINT OF CARE 135 MG/DL (70-110)
[2021-09-04 13:14] LABS: GLUCOMETER DEV NAME(LOC) 5N.3; GLUCOSE,POINT OF CARE 306 MG/DL (70-110)
[2021-09-04 18:04] LABS: GLUCOMETER DEV NAME(LOC) 5N.3; GLUCOSE,POINT OF CARE 345 MG/DL (70-110)
[2021-09-05 03:00] VITALS: BP 99/61
[2021-09-05] MEDS: INSULIN LISPRO 100 UNITS/ML SQ PRN ×4 (05:39→21:01)
[2021-09-05 05:47] LABS: HEMATOCRIT 38.2 % (36-46); HEMOGLOBIN 12.4 g/dL (12.0-16.0); LYMPHOCYTES # (AUTO) 2.5 K/uL (1.0-4.8); LYMPHOCYTES % (AUTO) 35.3 % (22.0-44.0); MEAN CORPUSCULAR HEMOGLOBIN 27.5 pg (26.0-34.0); MEAN CORPUSCULAR HGB CONC 32.5 G/dL (31.0-37.0); MEAN CORPUSCULAR VOLUME 85 fL (80-100); MONOCYTES # (AUTO) 0.3 K/uL (0.1-1.0); MONOCYTES % (AUTO) 4.9 % (2.0-9.0); NEUTROPHILS % (AUTO) 57.8 % (40.0-70.0); PLATELET COUNT (AUTO) 279 K/uL (150-450); RED BLOOD CELL COUNT(AUTO) 4.51 MIL/uL (4.00-5.20); RED CELL DISTRIBUTION WIDTH 14.4 % (11.5-14.5)
[2021-09-05 05:55] LABS: ANION GAP 4 mmol/L (8-16); CARBON DIOXIDE 35 mmol/L (22-29); CHLORIDE 100 mmol/L (98-107); CREATININE 0.87 mg/dL (0.60-1.30); GLOMERULAR FILTR. RATE CALC > 60 mL/min (>60); GLUCOSE,RANDOM 204 mg/dL (70-110); POTASSIUM 4.1 mmol/L (3.5-5.1); SODIUM SERUM 139 mmol/L (136-145); UREA NITROGEN, BLOOD 21 mg/dL (7-18)
[2021-09-05 06:28] LABS: GLUCOMETER DEV NAME(LOC) 5N.3; GLUCOSE,POINT OF CARE 196 MG/DL (70-110)
[2021-09-05 06:28] LABS: GLUCOMETER DEV NAME(LOC) 5N.3; GLUCOSE,POINT OF CARE 262 MG/DL (70-110)
[2021-09-05 06:38] LABS: C-REACTIVE PROTEIN QUANT 1.25 mg/dL (0.00-0.30)
[2021-09-05] MEDS: ENOXAPARIN SODIUM 100 MG/ML PF SYRINGE SQ SCH (07:59)
[2021-09-05] MEDS: DEXAMETHASONE SOD PHOS 4 MG/ML VIAL IVP SCH (07:59)
[2021-09-05] MEDS: FAMOTIDINE 20 MG TABLET PO SCH (08:00)
[2021-09-05] MEDS: DOCUSATE SODIUM 100 MG CAPSULE PO SCH ×2 (08:00→20:54)
[2021-09-05] MEDS: INSULIN GLARGINE,HUM.REC.ANLOG 100 UNITS/ML SQ SCH ×2 (08:05→21:01)
[2021-09-05 08:07] VITALS: BP 86/50
[2021-09-05 11:48] VITALS: BP 107/68
[2021-09-05 12:18] LABS: GLUCOMETER DEV NAME(LOC) 5N.3; GLUCOSE,POINT OF CARE 339 MG/DL (70-110)
[2021-09-05 15:38] VITALS: BP 103/67
[2021-09-05 18:15] LABS: GLUCOMETER DEV NAME(LOC) 5N.3; GLUCOSE,POINT OF CARE 312 MG/DL (70-110)
[2021-09-05 20:37] VITALS: BP 117/68
[2021-09-05] MEDS: APIXABAN 5 MG TABLET PO SCH (20:55)
[2021-09-06 00:42] VITALS: BP 100/60
[2021-09-06] MEDS: INSULIN LISPRO 100 UNITS/ML SQ PRN ×2 (06:36→11:43)
[2021-09-06 06:43] VITALS: BP 103/53
[2021-09-06 07:25] VITALS: BP 109/59
[2021-09-06] MEDS: APIXABAN 5 MG TABLET PO SCH (07:54)
[2021-09-06] MEDS: DOCUSATE SODIUM 100 MG CAPSULE PO SCH (07:54)
[2021-09-06] MEDS: FAMOTIDINE 20 MG TABLET PO SCH (07:54)
[2021-09-06] MEDS: INSULIN GLARGINE,HUM.REC.ANLOG 100 UNITS/ML SQ SCH (07:56)
[2021-09-06] MEDS ORDERED: MetFORMIN HCL 500 MG TABLET PO SCH (08:00)
[2021-09-06 12:15] VITALS: BP 114/64
[2021-09-06 15:44] LABS: GLUCOMETER DEV NAME(LOC) 5N.1C; GLUCOSE,POINT OF CARE 208 MG/DL (70-110)
[2021-09-06 15:44] LABS: GLUCOMETER DEV NAME(LOC) 5N.1C; GLUCOSE,POINT OF CARE 229 MG/DL (70-110)
[2021-09-06 15:44] LABS: GLUCOMETER DEV NAME(LOC) 5N.1C; GLUCOSE,POINT OF CARE 214 MG/DL (70-110)
== END 2021-09-06 14:15 | disposition home or self-care (01) | DRG 720 ==
LOC: EMS 16:05 → 5N 18:51
PROVIDERS: ADMIT Internal Medicine; ATTEND Internal Medicine
PROC: XW033E5 Introduction of Remdesivir Anti-infective into Peripheral Vein, Percutaneous Approach, New Technology Group 5 (ICD-10-PCS; principal; 2021-08-26)
PROC: XW033H5 Introduction of Tocilizumab into Peripheral Vein, Percutaneous Approach, New Technology Group 5 (ICD-10-PCS; 2021-08-26)
DX: A41.9 Sepsis, unspecified organism (principal); I26.99 Other pulmonary embolism without acute cor pulmonale; J12.82 Pneumonia due to coronavirus disease 2019; J96.01 Acute respiratory failure with hypoxia; U07.1 COVID-19; E44.0 Moderate protein-calorie malnutrition; N17.9 Acute kidney failure, unspecified; E11.65 Type 2 diabetes mellitus with hyperglycemia; D72.810 Lymphocytopenia; D68.59 Other primary thrombophilia; E78.00 Pure hypercholesterolemia, unspecified; E86.0 Dehydration; E78.5 Hyperlipidemia, unspecified; R79.89 Other specified abnormal findings of blood chemistry; E87.5 Hyperkalemia; E66.01 Morbid (severe) obesity due to excess calories; Z68.29 Body mass index [BMI] 29.0-29.9, adult; Z82.49 Family history of ischemic heart disease and other diseases of the circulatory system; Z91.19 Patient's noncompliance with other medical treatment and regimen; Z83.3 Family history of diabetes mellitus; Z79.899 Other long term (current) drug therapy; Z79.82 Long term (current) use of aspirin
CPT/HCPCS: 71045; 71275; 80048; 80053; 82728; 82962; 83605; 83615; 83690; 84145; 84439; 84443; 84484; 85025; 85379; 86140; 87040; 87804; 93005; 93306; 93970; 99291; J1100; J1644; J1650; J1815; J2405; J7030; J7050; Q9967; 36415-L1; 36415-TC; U0003

== ENCOUNTER 2023-11-19 18:52 | Emergency (ER) | payer OTHER ==
[~2023-11-19] VITALS: Ht 167.6 cm; Wt 108.6 kg
[~2023-11-19 18:52] MED LIST changes: +ATOR20TA PO; -ATOR20TA86 PO; -GLIP5 PO; +GLIP5TAB16 PO
[2023-11-19 19:18] VITALS: BP 140/70; PULSE 120; RESP 16; TEMP 98.1
[2023-11-20] MEDS ORDERED: SULF-261 PO (00:12)
[2023-11-20] MEDS ORDERED: CEPH-558 PO (00:12)
== END 2023-11-20 00:36 | disposition home or self-care (01) ==
LOC: EMS 18:59
DX: L03.032 Cellulitis of left toe (principal); E11.9 Type 2 diabetes mellitus without complications; E78.00 Pure hypercholesterolemia, unspecified
CPT/HCPCS: 82962; 99283

== ENCOUNTER 2024-06-10 13:31 | Emergency (ER) | payer OTHER ==
[~2024-06-10] VITALS: Ht 167.6 cm; Wt 98.0 kg
[~2024-06-10 13:31] MED LIST changes: +AMOX-457 PO; -ATOR20TA PO; -GLIP5TAB16 PO
[2024-06-10 13:38] VITALS: TEMP 98.7
[2024-06-10] MEDS ORDERED: CLOP75TA32 PO (13:40)
[2024-06-10] MEDS ORDERED: ASPI-1444 PO (13:40)
[2024-06-10] MEDS ORDERED: METF-446 PO (13:40)
[2024-06-10] MEDS ORDERED: ATOR40TA71 PO (13:40)
[2024-06-10] MEDS: HYDROCODONE/ACETAMINOPHEN 5-325 MG TABLET PO ONE (17:07)
[2024-06-10 17:17] LABS: BASOPHILS % (AUTO) 0.5 % (0.0-2.0); HEMOGLOBIN 11.7 g/dL (12.0-16.0); LYMPHOCYTES # (AUTO) 1.6 K/uL (1.0-4.8); LYMPHOCYTES % (AUTO) 20.1 % (22.0-44.0); MEAN CORPUSCULAR HGB CONC 32.4 G/dL (31.0-37.0); MEAN CORPUSCULAR VOLUME 86 fL (80-100); MONOCYTES # (AUTO) 0.5 K/uL (0.1-1.0); MONOCYTES % (AUTO) 5.6 % (2.0-9.0); NEUTROPHILS # (AUTO) 5.7 K/uL (1.8-7.7); NEUTROPHILS % (AUTO) 69.8 % (40.0-70.0); PLATELET COUNT (AUTO) 242 K/uL (150-450); RED BLOOD CELL COUNT(AUTO) 4.17 MIL/uL (4.00-5.20); RED CELL DISTRIBUTION WIDTH 17.3 % (11.5-14.5); WHITE BLOOD COUNT (AUTO) 8.1 K/uL (4.5-11.0)
[2024-06-10 17:26] LABS: CALCIUM, TOTAL 9.4 mg/dL (8.8-10.5); CREATININE 1.18 mg/dL (0.60-1.30); POTASSIUM 4.6 mmol/L (3.5-5.1)
[2024-06-10] MEDS ORDERED: HYDR-4062 PO (17:48)
[2024-06-10 18:00] VITALS: BP 135/71; PULSE 81; RESP 16
== END 2024-06-10 18:32 | disposition home or self-care (01) ==
LOC: EMS 13:31
DX: B35.1 Tinea unguium (principal); E11.9 Type 2 diabetes mellitus without complications; E78.00 Pure hypercholesterolemia, unspecified
CPT/HCPCS: 80048; 82962; 85025; 99283

== ENCOUNTER 2025-03-26 15:19 | Inpatient (IN) | payer OTHER ==
[~2025-03-26] VITALS: Ht 165.1 cm; Wt 98.2 kg
[~2025-03-26 15:19] MED LIST changes: -AMOX-457 PO; +ASPI-1444 PO; -ASPI-1450 PO; +ATOR40TA71 PO; +CLOP75TA32 PO; +HYDR-4062 PO; -METF-1211 PO; +METF-446 PO
[2025-03-26] MEDS ORDERED: HYDR-4808 PO (15:28)
[2025-03-26 16:35] LABS: BASOPHILS % (AUTO) 0.6 % (0.0-2.0); EOSINOPHILS % (AUTO) 5.3 % (1.0-6.0); HEMATOCRIT 37.7 % (36-46); HEMOGLOBIN 12.1 g/dL (12.0-16.0); LYMPHOCYTES # (AUTO) 1.3 K/uL (1.0-4.8); LYMPHOCYTES % (AUTO) 20.5 % (22.0-44.0); MEAN CORPUSCULAR HGB CONC 32.1 G/dL (31.0-37.0); MEAN CORPUSCULAR VOLUME 84 fL (80-100); MONOCYTES # (AUTO) 0.3 K/uL (0.1-1.0); MONOCYTES % (AUTO) 4.7 % (2.0-9.0); NEUTROPHILS # (AUTO) 4.5 K/uL (1.8-7.7); NEUTROPHILS % (AUTO) 68.9 % (40.0-70.0); PLATELET COUNT (AUTO) 270 K/uL (150-450); RED BLOOD CELL COUNT(AUTO) 4.48 MIL/uL (4.00-5.20); WHITE BLOOD COUNT (AUTO) 6.6 K/uL (4.5-11.0)
[2025-03-26 16:42] LABS: ANION GAP 6 mmol/L (8-16); CALCIUM, TOTAL 9.4 mg/dL (8.8-10.5); CARBON DIOXIDE 29 mmol/L (22-29); CHLORIDE 105 mmol/L (98-107); CREATININE 0.93 mg/dL (0.60-1.30); GLOMERULAR FILTR. RATE CALC > 60 mL/min (>60); GLUCOSE,RANDOM 133 mg/dL (70-110); POTASSIUM 3.9 mmol/L (3.5-5.1); SODIUM SERUM 140 mmol/L (136-145); UREA NITROGEN, BLOOD 16 mg/dL (7-18)
[2025-03-26 16:45] LABS: C-REACTIVE PROTEIN QUANT 0.12 mg/dL (0.00-0.30)
[2025-03-26 16:51] LABS: LACTIC ACID 0.8 mmol/L (0.4-2.0)
[2025-03-26] MEDS: CEFEPIME HCL 2 GM in DEXTROSE 5%-WATER 50 ML IV ONE (17:08)
[2025-03-26] MEDS: VANCOMYCIN 1.25 GM/WATER(PEG) 250 ML IV ONE (17:09)
[2025-03-26] MEDS ORDERED: LATA2.5D14 OU (17:11)
[2025-03-26] MEDS: *CLINICAL-CEFEPIME DOSING CLINICAL ONE (17:12)
[2025-03-26] MEDS ORDERED: MAGNESIUM HYDROXIDE SUSPENSION 30 ML UDCUP PO PRN (17:15)
[2025-03-26] MEDS ORDERED: DEXTROSE 50%-WATER 25 GM/50 ML SYRINGE IVP PRN (17:15)
[2025-03-26 17:27] LABS: ERYTHROCYTE SEDIMENTATION RATE 34 MM/HR (0-30)
[2025-03-26] MEDS ORDERED: GADOTERATE MEGLUMINE 10 MMOL/20 ML VIAL IVP ONE (18:01)
[2025-03-26] MEDS: DOCUSATE SODIUM 100 MG CAPSULE PO SCH (20:08)
[2025-03-26 21:49] VITALS: BP 132/75; PULSE 105; RESP 20; TEMP 98.1; O2SAT 97
[2025-03-27] MEDS: HEPARIN SODIUM,PORCINE 5,000 UNITS/ML VIAL SQ SCH
[2025-03-27 02:11] LABS: GLUCOMETER DEV NAME(LOC) 5S.1D; GLUCOSE,POINT OF CARE 74 MG/DL (70-110)
[2025-03-27] MEDS ORDERED: SODIUM CHLORIDE 0.9% 500 ML IV ONE (04:27)
[2025-03-27 05:07] VITALS: BP 104/49; PULSE 90; RESP 18; TEMP 98.4; O2SAT 98
[2025-03-27] MEDS: CEFEPIME HCL 2 GM in DEXTROSE 5%-WATER 50 ML IV SCH (05:12)
[2025-03-27] MEDS ORDERED: LIDOCAINE/PF 2% 5 ML VIAL ONE (06:01)
[2025-03-27] MEDS ORDERED: PROPOFOL 1% ISO-OSM 1000 MG/100 ML BOTTLE ONE (06:01)
[2025-03-27] MEDS ORDERED: FentaNYL CITRATE PF 100 MCG/2 ML VIAL ONE (06:01)
[2025-03-27] MEDS ORDERED: ONDANSETRON HCL 4 MG/2 ML VIAL ONE (06:01)
[2025-03-27] MEDS ORDERED: MIDAZOLAM HCL 2 MG/2 ML VIAL ONE (06:01)
[2025-03-27] MEDS ORDERED: PROPOFOL 1% 20 ML VIAL IVP ONE (06:01)
[2025-03-27 06:22] LABS: CALCIUM, TOTAL 8.9 mg/dL (8.8-10.5); CREATININE 1.18 mg/dL (0.60-1.30); POTASSIUM 3.7 mmol/L (3.5-5.1)
[2025-03-27] MEDS ORDERED: RINGERS SOLUTION,LACTATED 1,000 ML IV ONE (06:30)
[2025-03-27] MEDS: ETHYL ALCOHOL 62% ANTISEPTIC NASAL SANITIZER 0.6 ML AMPUL NASAL ONE (07:17)
[2025-03-27] MEDS: CHLORHEXIDINE GLUCONATE 2% TOWELETTE [2'S/6'S] TP ONE (07:17)
[2025-03-27] MEDS: RINGERS SOLUTION,LACTATED 1,000 ML IV ONE (07:18)
[2025-03-27] MEDS: BUPIVACAINE HCL/PF 0.25% 30 ML VIAL ONE (07:34)
[2025-03-27] MEDS: LIDOCAINE/PF 1% 30 ML VIAL ONE (07:34)
[2025-03-27] MEDS ORDERED: MEPERIDINE-PF 25 MG/ML VIAL IVP PRN (08:00)
[2025-03-27] MEDS ORDERED: HYDROmorphone HCL 2 MG/ML SYRINGE IVP PRN (08:00)
[2025-03-27] MEDS ORDERED: FentaNYL CITRATE PF 100 MCG/2 ML VIAL IVP PRN (08:00)
[2025-03-27 09:05] VITALS: BP 125/62; PULSE 80; RESP 18; TEMP 97.8; O2SAT 99
[2025-03-27] MEDS: FAMOTIDINE 20 MG TABLET PO SCH (09:13)
[2025-03-27 11:55] LABS: GLUCOMETER DEV NAME(LOC) 5S.1D; GLUCOSE,POINT OF CARE 163 MG/DL (70-110)
[2025-03-27 15:36] VITALS: BP 135/75; PULSE 77; RESP 18; TEMP 97.9; O2SAT 100
[2025-03-27 17:26] VITALS: BP 135/82; PULSE 78; RESP 18; O2SAT 99
[2025-03-27] MEDS: OxyCODONE HCL/ACETAMINOPHEN 5-325 MG TABLET PO PRN (17:27)
[2025-03-27 19:12] VITALS: BP 94/53; PULSE 74; RESP 18; TEMP 97.9; O2SAT 92
[2025-03-27] MEDS: VANCOMYCIN 1GM/WATER(PEG/NADA) 200 ML IV SCH (20:02)
[2025-03-27] MEDS: OXYGEN THERAPY IH SCH (20:03)
[2025-03-27] MEDS: ONDANSETRON HCL 4 MG/2 ML VIAL IVP PRN (20:14)
[2025-03-27] MEDS: INSULIN LISPRO 100 UNITS/ML SQ PRN (20:21)
[2025-03-27] MEDS: ACETAMINOPHEN 325 MG TABLET PO PRN (22:07)
[2025-03-27 23:53] VITALS: BP 120/67; PULSE 71; RESP 18; TEMP 97.7; O2SAT 98
[2025-03-28 02:01] LABS: GLUCOMETER DEV NAME(LOC) 6N.1B; GLUCOSE,POINT OF CARE 146 MG/DL (70-110)
[2025-03-28 02:05] LABS: GLUCOMETER DEV NAME(LOC) 5S.1D; GLUCOSE,POINT OF CARE 118 MG/DL (70-110)
[2025-03-28 04:29] VITALS: BP 101/58; PULSE 68; RESP 18; TEMP 97.7; O2SAT 99
[2025-03-28] MEDS: CEFEPIME HCL 2 GM in DEXTROSE 5%-WATER 50 ML IV SCH ×2 (05:17→18:09)
[2025-03-28 07:23] LABS: ANION GAP 8 mmol/L (8-16); CARBON DIOXIDE 26 mmol/L (22-29); CHLORIDE 106 mmol/L (98-107); CREATININE 0.87 mg/dL (0.60-1.30); GLOMERULAR FILTR. RATE CALC > 60 mL/min (>60); GLUCOSE,RANDOM 120 mg/dL (70-110); SODIUM SERUM 140 mmol/L (136-145); UREA NITROGEN, BLOOD 14 mg/dL (7-18)
[2025-03-28 07:33] VITALS: BP 107/65; PULSE 69; RESP 18; TEMP 97.5; O2SAT 100
[2025-03-28 08:11] LABS: GLUCOMETER DEV NAME(LOC) 6N.1B; GLUCOSE,POINT OF CARE 125 MG/DL (70-110)
[2025-03-28] MEDS: MORPHINE SULFATE 2 MG/ML SYRINGE IVP PRN (08:35)
[2025-03-28 08:47] VITALS: BP 138/73; PULSE 73
[2025-03-28 09:39] VITALS: BP 161/83; PULSE 80
[2025-03-28] MEDS ORDERED: DOXY-354 PO (11:01)
[2025-03-28 14:36] LABS: GLUCOMETER DEV NAME(LOC) 6N.1B; GLUCOSE,POINT OF CARE 184 MG/DL (70-110)
[2025-03-28 15:54] VITALS: BP 124/66; PULSE 79; RESP 18; TEMP 97.7; O2SAT 99
[2025-03-28 17:11] LABS: GLUCOMETER DEV NAME(LOC) 4E.2; GLUCOSE,POINT OF CARE 156 MG/DL (70-110)
[2025-03-28 18:55] LABS: GLUCOMETER DEV NAME(LOC) 6N.1B; GLUCOSE,POINT OF CARE 176 MG/DL (70-110)
[2025-03-28 20:00] VITALS: BP 129/60; PULSE 94; RESP 20; TEMP 98.2; O2SAT 98
[2025-03-28 21:45] LABS: GLUCOMETER DEV NAME(LOC) 5S.1D; GLUCOSE,POINT OF CARE 125 MG/DL (70-110)
[2025-03-29 04:22] VITALS: BP 103/60; PULSE 96; RESP 18; TEMP 98.8; O2SAT 98
[2025-03-29 05:30] LABS: GLUCOMETER DEV NAME(LOC) 6N.1B; GLUCOSE,POINT OF CARE 168 MG/DL (70-110)
[2025-03-29 07:28] LABS: ANION GAP 5 mmol/L (8-16); CALCIUM, TOTAL 8.9 mg/dL (8.8-10.5); CARBON DIOXIDE 26 mmol/L (22-29); CHLORIDE 104 mmol/L (98-107); CREATININE 0.78 mg/dL (0.60-1.30); GLOMERULAR FILTR. RATE CALC > 60 mL/min (>60); GLUCOSE,RANDOM 153 mg/dL (70-110); POTASSIUM 3.9 mmol/L (3.5-5.1); SODIUM SERUM 135 mmol/L (136-145); UREA NITROGEN, BLOOD 12 mg/dL (7-18)
[2025-03-29 08:45] VITALS: BP 100/49; PULSE 75; RESP 18; TEMP 98.1; O2SAT 97
[2025-03-29 15:06] LABS: GLUCOMETER DEV NAME(LOC) 6N.1B; GLUCOSE,POINT OF CARE 191 MG/DL (70-110)
== END 2025-03-29 14:54 | disposition home or self-care (01) | DRG 314 ==
LOC: EMS 15:20 → EDH 17:04 → 4E 21:30
PROVIDERS: ADMIT Internal Medicine; ATTEND Internal Medicine
PROC: 0Y6P0Z1 Detachment at Right 1st Toe, High, Open Approach (ICD-10-PCS; principal; 2025-03-27 07:25)
DX: T87.43 Infection of amputation stump, right lower extremity (principal); E11.52 Type 2 diabetes mellitus with diabetic peripheral angiopathy with gangrene; L97.519 Non-pressure chronic ulcer of other part of right foot with unspecified severity; E11.40 Type 2 diabetes mellitus with diabetic neuropathy, unspecified; E11.621 Type 2 diabetes mellitus with foot ulcer; M86.8X7 Other osteomyelitis, ankle and foot; Y83.8 Other surgical procedures as the cause of abnormal reaction of the patient, or of later complication, without mention of misadventure at the time of the procedure; E78.00 Pure hypercholesterolemia, unspecified; Z83.3 Family history of diabetes mellitus; Z82.49 Family history of ischemic heart disease and other diseases of the circulatory system; Y92.89 Other specified places as the place of occurrence of the external cause
CPT/HCPCS: 73720; 80048; 80202; 82962; 83605; 85025; 85651; 86140; 87040; 87070; 87081; 87186; 87205; 93925; 96365; 96368; 97161; 99285; G0378; J0692; J1644; J2250; J2270; J2405; J2704; J3010; J3490; J7040; J7060; J7120

== ENCOUNTER 2025-05-22 19:22 | Emergency (ER) | payer OTHER ==
[~2025-05-22] VITALS: Ht 162.6 cm; Wt 100.0 kg
[~2025-05-22 19:22] MED LIST changes: -ATOR40TA71 PO; +DOXY-354 PO; -HYDR-4062 PO; +LATA2.5D7 OU
[2025-05-22 19:53] VITALS: TEMP 98.2
[2025-05-22] MEDS ORDERED: HYDR-4062 PO ×2 (23:16→23:32)
[2025-05-22] MEDS ORDERED: IBUP-1493 PO (23:16)
[2025-05-22] MEDS ORDERED: AMOX500C2 PO (23:16)
[2025-05-22 23:23] VITALS: BP 128/69; PULSE 100; RESP 18; O2SAT 100
== END 2025-05-22 23:56 | disposition home or self-care (01) ==
LOC: EMS 19:23
DX: K02.9 Dental caries, unspecified (principal); K08.89 Other specified disorders of teeth and supporting structures; E11.9 Type 2 diabetes mellitus without complications; E78.00 Pure hypercholesterolemia, unspecified; Z79.82 Long term (current) use of aspirin; Z79.02 Long term (current) use of antithrombotics/antiplatelets; Z79.899 Other long term (current) drug therapy
CPT/HCPCS: 82962; 99283

== ENCOUNTER 2025-06-10 16:34 | Inpatient (IN) | payer OTHER ==
[~2025-06-10] VITALS: Ht 162.6 cm; Wt 101.4 kg
[~2025-06-10 16:34] MED LIST changes: +AMOX500C2 PO; +HYDR-4062 PO; +IBUP-1493 PO
[2025-06-10 17:35] LABS: PLATELET COUNT (AUTO) 271 K/uL (150-450); RED BLOOD CELL COUNT(AUTO) 4.42 MIL/uL (4.00-5.20); RED CELL DISTRIBUTION WIDTH 16.1 % (11.5-14.5); WHITE BLOOD COUNT (AUTO) 7.2 K/uL (4.5-11.0)
[2025-06-10 17:37] LABS: ERYTHROCYTE SEDIMENTATION RATE 67 MM/HR (0-30)
[2025-06-10 17:41] LABS: CALCIUM, TOTAL 9.1 mg/dL (8.8-10.5); CREATININE 1.12 mg/dL (0.60-1.30); GLOMERULAR FILTR. RATE CALC 59.0 mL/min (>60); GLUCOSE,RANDOM 112.0 mg/dL (70-110); SODIUM SERUM 140.0 mmol/L (136-145); UREA NITROGEN, BLOOD 19.0 mg/dL (7-18)
[2025-06-10 17:44] LABS: C-REACTIVE PROTEIN QUANT 0.15 mg/dL (0.00-0.30)
[2025-06-10 18:01] LABS: LACTIC ACID 2.5 mmol/L (0.4-2.0)
[2025-06-10] MEDS: CEFEPIME HCL 2 GM in DEXTROSE 5%-WATER 50 ML IV ONE (18:26)
[2025-06-10] MEDS: VANCOMYCIN 1.25 GM/WATER(PEG) 250 ML IV ONE (18:26)
[2025-06-10] MEDS: SODIUM CHLORIDE 0.9% 1,000 ML IV ONE (18:27)
[2025-06-10] MEDS ORDERED: GADOTERATE MEGLUMINE 10 MMOL/20 ML VIAL IVP ONE (19:40)
[2025-06-10 21:51] VITALS: BP 149/83; PULSE 65; RESP 18; TEMP 97.9; O2SAT 95
[2025-06-10] MEDS ORDERED: ALBUTEROL SULFATE 2.5 MG/0.5 ML NEB SOLUTION NEB PRN (22:00)
[2025-06-10] MEDS ORDERED: ONDANSETRON HCL 4 MG/2 ML VIAL IVP PRN (22:00)
[2025-06-10] MEDS ORDERED: DEXTROSE 50%-WATER 25 GM/50 ML SYRINGE IVP PRN (22:00)
[2025-06-10] MEDS ORDERED: HYDROCODONE/ACETAMINOPHEN 5-325 MG TABLET PO PRN (22:00)
[2025-06-10] MEDS ORDERED: ZOLPIDEM TARTRATE 5 MG TABLET PO PRN (22:00)
[2025-06-10] MEDS ORDERED: ACETAMINOPHEN 325 MG TABLET PO PRN (22:00)
[2025-06-10] MEDS ORDERED: BISACODYL 10 MG RECTAL RECTAL SUPPOSITORY PR PRN (22:00)
[2025-06-10] MEDS ORDERED: MAGNESIUM HYDROXIDE SUSPENSION 30 ML UDCUP PO PRN (22:00)
[2025-06-10] MEDS ORDERED: MORPHINE SULFATE 2 MG/ML SYRINGE IVP PRN (22:00)
[2025-06-10] MEDS ORDERED: IPRATROPIUM BROMIDE 0.5 MG/2.5 ML NEB SOLUTION NEB PRN (22:00)
[2025-06-10] MEDS: HEPARIN SODIUM,PORCINE 5,000 UNITS/ML VIAL SQ SCH (23:34)
[2025-06-11] MEDS: PIPERACILLIN/TAZO 3.375 GM/D5W 50 ML IV SCH (02:48)
[2025-06-11 04:46] VITALS: BP 138/78; PULSE 93; RESP 19; TEMP 97.5; O2SAT 97
[2025-06-11 07:20] VITALS: BP 112/67; PULSE 76; RESP 18; TEMP 98.1; O2SAT 97
[2025-06-11 07:24] LABS: CALCIUM, TOTAL 8.6 mg/dL (8.8-10.5); CREATININE 0.93 mg/dL (0.60-1.30); GLOMERULAR FILTR. RATE CALC > 60 mL/min (>60); GLUCOSE,RANDOM 139 mg/dL (70-110); SODIUM SERUM 140 mmol/L (136-145); UREA NITROGEN, BLOOD 15 mg/dL (7-18)
[2025-06-11] MEDS: VANCOMYCIN 750 MG/WATER(PEG) 150 ML IV SCH (08:16)
[2025-06-11] MEDS: ASPIRIN 81 MG DR TABLET PO SCH (08:16)
[2025-06-11] MEDS: PANTOPRAZOLE SODIUM 40 MG DR TABLET PO SCH (08:16)
[2025-06-11 13:15] LABS: GLUCOMETER DEV NAME(LOC) 4E.2; GLUCOSE,POINT OF CARE 136 MG/DL (70-110)
[2025-06-11 16:09] VITALS: BP 105/61; PULSE 78; RESP 18; TEMP 98.1; O2SAT 98
[2025-06-11 17:06] LABS: GLUCOMETER DEV NAME(LOC) 6S.1D; GLUCOSE,POINT OF CARE 81 MG/DL (70-110)
[2025-06-11 17:06] LABS: GLUCOMETER DEV NAME(LOC) 6S.1D; GLUCOSE,POINT OF CARE 140 MG/DL (70-110)
[2025-06-11 17:31] LABS: GLUCOMETER DEV NAME(LOC) 4E.2; GLUCOSE,POINT OF CARE 121 MG/DL (70-110)
[2025-06-11 19:43] VITALS: BP 107/94; PULSE 83; RESP 18; TEMP 98.1; O2SAT 96
[2025-06-11] MEDS: LATANOPROST 0.005% 2.5 ML OPHTHALMIC SOLUTION OU SCH (20:43)
[2025-06-12 05:02] VITALS: BP 105/55; PULSE 75; RESP 18; TEMP 98.4; O2SAT 95
[2025-06-12 05:21] LABS: GLUCOMETER DEV NAME(LOC) 4E.2; GLUCOSE,POINT OF CARE 96 MG/DL (70-110)
[2025-06-12] MEDS: INSULIN LISPRO 100 UNITS/ML SQ PRN (05:39)
[2025-06-12 07:20] LABS: CALCIUM, TOTAL 8.4 mg/dL (8.8-10.5); CREATININE 1.32 mg/dL (0.60-1.30); GLOMERULAR FILTR. RATE CALC 49.0 mL/min (>60); GLUCOSE,RANDOM 158.0 mg/dL (70-110); SODIUM SERUM 140.0 mmol/L (136-145); UREA NITROGEN, BLOOD 20.0 mg/dL (7-18)
[2025-06-12 08:06] VITALS: BP 100/58; PULSE 74; RESP 18; TEMP 98.2; O2SAT 98
[2025-06-12 11:36] LABS: GLUCOMETER DEV NAME(LOC) 4E.2; GLUCOSE,POINT OF CARE 159 MG/DL (70-110)
[2025-06-12 12:05] LABS: GLUCOMETER DEV NAME(LOC) 6N.1B; GLUCOSE,POINT OF CARE 113 MG/DL (70-110)
[2025-06-12 15:40] VITALS: BP 111/62; PULSE 80; RESP 20; TEMP 98.2; O2SAT 96
[2025-06-12 18:20] LABS: GLUCOMETER DEV NAME(LOC) 6S.1D; GLUCOSE,POINT OF CARE 154 MG/DL (70-110)
[2025-06-12 19:55] VITALS: BP 144/80; PULSE 66; RESP 18; TEMP 98.2; O2SAT 98
[2025-06-12] MEDS: HYDROCODONE/ACETAMINOPHEN 5-325 MG TABLET PO PRN (23:55)
[2025-06-13 05:20] VITALS: BP 106/72; PULSE 86; RESP 18; TEMP 97.9; O2SAT 97
[2025-06-13 07:53] LABS: PLATELET COUNT (AUTO) 212 K/uL (150-450); RED BLOOD CELL COUNT(AUTO) 3.78 MIL/uL (4.00-5.20); RED CELL DISTRIBUTION WIDTH 16.0 % (11.5-14.5); WHITE BLOOD COUNT (AUTO) 5.7 K/uL (4.5-11.0)
[2025-06-13 08:15] LABS: ASPARTATE AMINOTRANSFERASE 18.0 U/L (15-37); CALCIUM, TOTAL 8.5 mg/dL (8.8-10.5); CREATININE 1.23 mg/dL (0.60-1.30); GLOMERULAR FILTR. RATE CALC 53.0 mL/min (>60); GLUCOSE,RANDOM 118.0 mg/dL (70-110); SODIUM SERUM 141.0 mmol/L (136-145); TOTAL PROTEIN, SERUM 6.5 g/dL (6.4-8.2); UREA NITROGEN, BLOOD 17.0 mg/dL (7-18)
[2025-06-13 08:38] VITALS: BP 102/58; PULSE 73; RESP 18; TEMP 97.7; O2SAT 98
[2025-06-13 14:35] LABS: GLUCOMETER DEV NAME(LOC) 4E.2; GLUCOSE,POINT OF CARE 155 MG/DL (70-110)
[2025-06-13 17:15] LABS: GLUCOMETER DEV NAME(LOC) 6N.1B; GLUCOSE,POINT OF CARE 110 MG/DL (70-110)
[2025-06-13 17:31] LABS: GLUCOMETER DEV NAME(LOC) 6S.1D; GLUCOSE,POINT OF CARE 144 MG/DL (70-110)
[2025-06-13 20:17] VITALS: BP 128/62; PULSE 82; RESP 18; TEMP 98.6; O2SAT 95
[2025-06-14 06:06] LABS: GLUCOMETER DEV NAME(LOC) 6N.1B; GLUCOSE,POINT OF CARE 101 MG/DL (70-110)
[2025-06-14 06:09] VITALS: BP 106/69; PULSE 83; RESP 18; TEMP 97.9; O2SAT 98
[2025-06-14 06:30] LABS: GLUCOMETER DEV NAME(LOC) 4E.2; GLUCOSE,POINT OF CARE 188 MG/DL (70-110)
[2025-06-14 08:00] VITALS: BP 117/65; PULSE 85; RESP 20; TEMP 98.1; O2SAT 99
[2025-06-14 08:29] LABS: CALCIUM, TOTAL 8.8 mg/dL (8.8-10.5); CREATININE 0.96 mg/dL (0.60-1.30); GLOMERULAR FILTR. RATE CALC > 60 mL/min (>60); GLUCOSE,RANDOM 116 mg/dL (70-110); SODIUM SERUM 140 mmol/L (136-145); UREA NITROGEN, BLOOD 15 mg/dL (7-18)
[2025-06-14] MEDS ORDERED: MAGNESIUM HYDROXIDE SUSPENSION 30 ML UDCUP PO PRN (09:00)
[2025-06-14] MEDS: DOCUSATE SODIUM 100 MG CAPSULE PO SCH (09:42)
[2025-06-14 14:56] LABS: GLUCOMETER DEV NAME(LOC) 6N.1B; GLUCOSE,POINT OF CARE 109 MG/DL (70-110)
[2025-06-14 14:56] LABS: GLUCOMETER DEV NAME(LOC) 6N.1B; GLUCOSE,POINT OF CARE 189 MG/DL (70-110)
[2025-06-14 16:00] VITALS: BP 165/85; PULSE 81; RESP 20; TEMP 97.9; O2SAT 98
[2025-06-14 20:00] VITALS: BP 148/82; PULSE 73; RESP 20; TEMP 97.9; O2SAT 95
[2025-06-14 20:50] LABS: GLUCOMETER DEV NAME(LOC) 6N.1B; GLUCOSE,POINT OF CARE 107 MG/DL (70-110)
[2025-06-15 04:00] VITALS: BP 140/78; PULSE 97; RESP 18; TEMP 97.7; O2SAT 97
[2025-06-15 06:10] LABS: GLUCOMETER DEV NAME(LOC) 4E.2; GLUCOSE,POINT OF CARE 119 MG/DL (70-110)
[2025-06-15 07:02] LABS: CALCIUM, TOTAL 9.1 mg/dL (8.8-10.5); CREATININE 1.09 mg/dL (0.60-1.30); GLOMERULAR FILTR. RATE CALC > 60 mL/min (>60); GLUCOSE,RANDOM 127 mg/dL (70-110); SODIUM SERUM 142 mmol/L (136-145); UREA NITROGEN, BLOOD 17 mg/dL (7-18)
[2025-06-15 08:20] VITALS: BP 113/56; PULSE 81; RESP 20; TEMP 98.1; O2SAT 100
[2025-06-15 16:21] VITALS: BP 126/70; PULSE 81; RESP 20; TEMP 98.2; O2SAT 94
[2025-06-15 17:56] LABS: GLUCOMETER DEV NAME(LOC) 6S.1D; GLUCOSE,POINT OF CARE 101 MG/DL (70-110)
[2025-06-15 17:56] LABS: GLUCOMETER DEV NAME(LOC) 6S.1D; GLUCOSE,POINT OF CARE 165 MG/DL (70-110)
[2025-06-15 17:56] LABS: GLUCOMETER DEV NAME(LOC) 6S.1D; GLUCOSE,POINT OF CARE 76 MG/DL (70-110)
[2025-06-15 20:02] VITALS: BP 117/68; PULSE 84; RESP 18; TEMP 98.1; O2SAT 98
[2025-06-15] MEDS: SULFAMETHOX/TRIMETH DS 800-160 MG/TABLET PO SCH (20:51)
[2025-06-15 21:16] LABS: GLUCOMETER DEV NAME(LOC) 6N.1B; GLUCOSE,POINT OF CARE 138 MG/DL (70-110)
[2025-06-16 04:46] VITALS: BP 118/68; PULSE 88; RESP 18; TEMP 98.4; O2SAT 98
[2025-06-16 07:02] LABS: PLATELET COUNT (AUTO) 202 K/uL (150-450); RED BLOOD CELL COUNT(AUTO) 4.14 MIL/uL (4.00-5.20); RED CELL DISTRIBUTION WIDTH 15.8 % (11.5-14.5); WHITE BLOOD COUNT (AUTO) 6.7 K/uL (4.5-11.0)
[2025-06-16 07:24] LABS: ASPARTATE AMINOTRANSFERASE 23 U/L (15-37); CALCIUM, TOTAL 9.2 mg/dL (8.8-10.5); CREATININE 1.08 mg/dL (0.60-1.30); GLOMERULAR FILTR. RATE CALC > 60 mL/min (>60); GLUCOSE,RANDOM 156 mg/dL (70-110); SODIUM SERUM 141 mmol/L (136-145); TOTAL PROTEIN, SERUM 7.0 g/dL (6.4-8.2); UREA NITROGEN, BLOOD 24 mg/dL (7-18)
[2025-06-16 08:22] VITALS: BP 108/64; PULSE 74; RESP 18; TEMP 98.2; O2SAT 100
[2025-06-16] MEDS ORDERED: SULF1TAB42 PO (08:22)
[2025-06-16] MEDS ORDERED: METF-1211 PO (08:23)
[2025-06-16 13:06] LABS: GLUCOMETER DEV NAME(LOC) 6N.1B; GLUCOSE,POINT OF CARE 135 MG/DL (70-110)
[2025-06-16 20:21] LABS: GLUCOMETER DEV NAME(LOC) 6S.1D; GLUCOSE,POINT OF CARE 157 MG/DL (70-110)
== END 2025-06-16 16:15 | disposition home or self-care (01) | DRG 349 ==
LOC: EMS 16:34 → EDH 19:23 → 4E 21:31
PROVIDERS: ADMIT Hospitalist; ATTEND Hospitalist
PROC: 0Y9M3ZZ Drainage of Right Foot, Percutaneous Approach (ICD-10-PCS; principal; 2025-06-12)
DX: T87.43 Infection of amputation stump, right lower extremity (principal); L03.115 Cellulitis of right lower limb; E11.40 Type 2 diabetes mellitus with diabetic neuropathy, unspecified; E11.51 Type 2 diabetes mellitus with diabetic peripheral angiopathy without gangrene; E78.00 Pure hypercholesterolemia, unspecified; Z82.49 Family history of ischemic heart disease and other diseases of the circulatory system; Z83.3 Family history of diabetes mellitus
CPT/HCPCS: 73720; 80048; 80053; 80202; 82962; 83605; 85025; 85651; 86140; 87040; 87070; 87205; 93926; 93971; 96365; 96366; 96367; 96368; 96372; 99285; G0378; J0692; J1644; J2543; J7030; J7060; 36415-L1; 36415-TC

== ENCOUNTER 2025-07-11 17:18 | Emergency (ER) | payer OTHER ==
[~2025-07-11] VITALS: Ht 165.1 cm; Wt 98.0 kg
[~2025-07-11 17:18] MED LIST changes: -AMOX500C2 PO; -DOXY-354 PO; -HYDR-4062 PO; -IBUP-1493 PO; +METF-1211 PO; -METF-446 PO; +SULF1TAB42 PO
[2025-07-11 17:25] VITALS: BP 166/88; PULSE 120; RESP 16; TEMP 98; O2SAT 98
[2025-07-11] MEDS ORDERED: CIPR-515 PO (20:26)
[2025-07-11] MEDS ORDERED: ATOR-2 PO (20:31)
[2025-07-11] MEDS ORDERED: LIDO1ADH72 TP (20:31)
[2025-07-11] MEDS: POVIDONE-IODINE 10% 15 ML SOLUTION UD TP ONE (20:35)
== END 2025-07-11 21:01 | disposition home or self-care (01) ==
LOC: EMS 17:20
DX: E11.52 Type 2 diabetes mellitus with diabetic peripheral angiopathy with gangrene (principal); T81.31XA Disruption of external operation (surgical) wound, not elsewhere classified, initial encounter; E78.00 Pure hypercholesterolemia, unspecified; Z79.02 Long term (current) use of antithrombotics/antiplatelets; Z79.82 Long term (current) use of aspirin; Z89.411 Acquired absence of right great toe; Z79.899 Other long term (current) drug therapy; Y92.89 Other specified places as the place of occurrence of the external cause
CPT/HCPCS: 99283; 97597; 82962; A4247